=== PATIENT | male | born 1945 | race Caucasian/White ===

== ENCOUNTER 2019-08-01 11:10 | Outpatient (CLI) | payer MEDICARE, OTHER ==
[2019-08-01] MEDS ORDERED: HYDROCHLOROTH12.5 MG PO (11:50)
[2019-08-01] MEDS ORDERED: DICL100G29 TD (11:50)
[2019-08-01] MEDS ORDERED: CLOB15OI TD (11:50)
[2019-08-01] MEDS ORDERED: RABE20TA26 PO (11:50)
[2019-08-01] MEDS ORDERED: CARB1DRO8 EACHEYE (11:50)
[2019-08-01] MEDS ORDERED: CYAN250013 PO (11:50)
[2019-08-01] MEDS ORDERED: CHOL10003 PO (11:50)
[2019-08-01] MEDS ORDERED: LISI-167 PO (11:50)
[2019-08-01] MEDS ORDERED: [UNRECOGNIZED DRUG - CODE] TD (11:50)
[2019-08-01] MEDS ORDERED: ATOR10TA9 PO (11:50)
[2019-08-01] MEDS ORDERED: ALEN70TA6 PO (11:50)
== END 2019-08-01 23:59 | disposition home or self-care (01) ==
LOC: STAR 11:10
PROVIDERS: ATTEND Surgery
DX: Z01.812 Encounter for preprocedural laboratory examination (principal); K40.90 Unilateral inguinal hernia, without obstruction or gangrene, not specified as recurrent
CPT/HCPCS: 93005

== ENCOUNTER 2019-08-07 06:25 | Day surgery (SDC) | payer MEDICARE, OTHER ==
[~2019-08-07] VITALS: Ht 167.6 cm; Wt 71.4 kg
[~2019-08-07 06:25] MED LIST: ALEN70TA6 PO; ATOR10TA9 PO; CARB1DRO8 EACHEYE; CHOL10003 PO; CLOB15OI TD; CYAN250013 PO; DICL100G29 TD; HYDROCHLOROTH12.5 MG PO; LISI-167 PO; RABE20TA26 PO; [UNRECOGNIZED DRUG - CODE] TD
[2019-08-07] MEDS ORDERED: LACTATED RINGERS 1,000 ML IV SCH (07:06)
[2019-08-07 07:08] VITALS: BP 132/85
[2019-08-07] MEDS ORDERED: ACETAMINOPHEN 500 MG TABLET PO ONE (07:30)
[2019-08-07] MEDS ORDERED: GABAPENTIN 300 MG CAPSULE PO ONE (07:30)
[2019-08-07] MEDS ORDERED: FENTANYL PF 250 MCG/5ML ONE (07:55)
[2019-08-07] MEDS ORDERED: BUPIVACAINE/PF 0.5% ONE (08:24)
[2019-08-07] MEDS ORDERED: EPINEPHRINE 1 MG/ML, 1ML ONE (08:24)
[2019-08-07] MEDS ORDERED: LABETALOL 5MG/ML, 20ML IV PRN (08:30)
[2019-08-07] MEDS ORDERED: hydrALAzine 20 MG/ML, 1ML IV PRN (08:30)
[2019-08-07] MEDS ORDERED: FENTANYL PF 100 MCG/2ML IV PRN (08:30)
[2019-08-07] MEDS ORDERED: MEPERIDINE/PF 25MG/ML,1ML IVPush PRN (08:30)
[2019-08-07] MEDS ORDERED: HALOPERIDOL 5 MG/ML IV PRN (08:30)
[2019-08-07] MEDS ORDERED: HYDROmorphone 2 MG/ML, 1ML IVPush PRN (08:30)
[2019-08-07] MEDS ORDERED: PROMETHAZINE 25 MG/ML, 1ML IV PRN (08:30)
[2019-08-07] MEDS ORDERED: OXYcodone 5 MG/5 ML ORAL.SOL UDC PO PRN (08:30)
[2019-08-07] MEDS ORDERED: CEFAZOLIN 1,000 MG ONE (10:02)
[2019-08-07] MEDS ORDERED: SUCCINYLCHOLINE 20 MG/ML, 10ML ONE (10:02)
[2019-08-07] MEDS ORDERED: ROCURONIUM 10MG/ML,5ML ONE (10:02)
[2019-08-07] MEDS ORDERED: DEXAMETHASONE 4 MG/ML, 1ML ONE (10:02)
[2019-08-07] MEDS ORDERED: PROPOFOL 10 MG/ML, 20ML ONE (10:02)
[2019-08-07] MEDS ORDERED: ONDANSETRON 2MG/ML, 2ML ONE (10:02)
[2019-08-07] MEDS ORDERED: NEOSTIGMINE 1 MG/ML, 10ML ONE (10:02)
[2019-08-07] MEDS ORDERED: GLYCOPYRROLATE 0.2MG/1ML, 5ML ONE (10:02)
[2019-08-07] MEDS ORDERED: OXYcodone 5 MG/5 ML ORAL.SOL UDC ONE (10:31)
[2019-08-07] MEDS ORDERED: MEPERIDINE/PF 25MG/ML,1ML ONE (11:00)
== END 2019-08-07 14:25 | disposition home or self-care (01) ==
LOC: OUT 06:25
PROVIDERS: ATTEND Surgery
DX: K40.90 Unilateral inguinal hernia, without obstruction or gangrene, not specified as recurrent (principal); I34.0 Nonrheumatic mitral (valve) insufficiency; E78.5 Hyperlipidemia, unspecified; I10 Essential (primary) hypertension; K21.9 Gastro-esophageal reflux disease without esophagitis; Z79.82 Long term (current) use of aspirin; Z98.890 Other specified postprocedural states
CPT/HCPCS: 49505; C1781; J0171; J0330; J0690; J1100; J2175; J2405; J2704; J3010; J7120; J2710